=== PATIENT | female | born 1960 | race Caucasian/White ===

== ENCOUNTER → 2025-03-06 09:04 | Outpatient (CLI) | payer OTHER, SELFPAY ==
--- NOTE | 2025-03-07 07:55 | DI.NM.S_ITS ---
DATE OF SERVICE: 03/06/2025 NUCLEAR CARDIOLOGY MYOCARDIAL PERFUSION STUDY PROCEDURE PERFORMED: Exercise treadmill stress and rest myocardial perfusion imaging with gating to assess ejection fraction and regional wall motion. ORDERING PROVIDER: Rosa Maria Ramon PA-C INDICATIONS: The patient is a 64-year-old female with exertional dyspnea. CARDIAC STRESS: The patient was able to exercise for 11 minute 2 seconds on a standard Mauri protocol suggesting exceptional exercise capacity with an PRADIP of -66%, achieving 12.8 METS. She had a normal heart rate and blood pressure response to exercise, achieving a maximum heart rate of 147 bpm (94% of her predicted maximum). She had moderate exertional dyspnea but no anginal discomfort or other symptoms. Her resting ECG is normal with normal ST segments. There are no significant ST-segment shifts or arrhythmias with stress. Around one minute before peak exercise, 26.10 mCi of Tech-99 Myoview was injected and she was scanned 15 minutes later using a gated SPECT imaging protocol. Earlier in the day while at rest, she had been injected with 12.80mCi of Tech-99 Myoview and imaged again with a gated SPECT protocol. FINDINGS: 1. Raw data: There is fairly good myocardial tracer uptake but mild breast shadows noted across the anterior wall. The lung/heart ratio is normal at 0.24 with a normal TID ratio of 0.85. 2. Quantitated gated SPECT: Post-stress ejection fraction is 82% without any focal wall motion abnormality and specifically the mid anterior wall has brisk contractility. The resting ejection fraction is 74% with a normal resting end-diastolic volume of 80 mL. 3. Myocardial perfusion imaging: Post-stress supine images show a mild perfusion defect in the mid anterior wall but sparing the distal anterior wall in apex in a pattern consistent with breast attenuation artifact. Unfortunately, prone imaging was not performed to assess for this. The resting images show a fairly similar perfusion pattern with perhaps slight improvement in the anterior defect but it appears to be predominantly fixed. IMPRESSION: 1. Probable normal, low risk myocardial perfusion study. 2. Predominantly fixed but slightly reversible mid anterior perfusion defect, most likely due to breast attenuation artifact. While a previous nontransmural infarction with slight domo-infarct ischemia cannot be entirely excluded, the absence of any wall motion abnormality would mitigate against this and her exceptional exercise capacity without symptoms or ECG abnormalities suggests this is a low risk study. 3. Normal left ventricular size and systolic function. 4. Exceptional exercise capacity without angina or ECG evidence of ischemia. There were no arrhythmias. HankRylie rosales - KARYNA/justino/ADELAIDA doc#: [id number]/job#: [id number] dd: 03/06/2025 17:00:00 dt: 03/06/2025 18:23:00 DICTATING MD/COPIES TO: Honorio Dubon MD; VERÓNICA Haas COPIES MNE: JOSE;
== END ==
LOC: NUCM 09:07
PROVIDERS: PCP Physician Assistant Medical; Referring Provider Physician Assistant Medical; Visit Provider Physician Assistant Medical
DX: R06.09 Other forms of dyspnea (principal)
CPT/HCPCS: 78452; 93017; A9502